=== PATIENT | female | born 1995 | race Caucasian/White ===

== ENCOUNTER 2018-05-30 02:45 | Inpatient (IN) | payer OTHER ==
[~2018-05-30] VITALS: Ht 154.9 cm; Wt 78.0 kg
[2018-05-30] MEDS ORDERED: RINGERS SOLUTION,LACTATED 1,000 ML IV PRN (03:05)
[2018-05-30] MEDS ORDERED: OXYTOCIN 30 UNITS/LACT RINGERS 500 ML IV ONE (03:05)
[2018-05-30] MEDS ORDERED: METOCLOPRAMIDE HCL 5 MG/ML 2 ML VIAL IVP PRN (03:15)
[2018-05-30] MEDS ORDERED: CITRIC ACID/SODIUM CITRATE 30 ML SOLUTION UDCUP PO PRN (03:15)
[2018-05-30] MEDS ORDERED: AMPICILLIN SODIUM 2 GM/NS 100 ML IV ONE (03:15)
[2018-05-30] MEDS ORDERED: FentaNYL CITRATE-PF 100 MCG/2 ML VIAL IVP PRN (03:15)
[2018-05-30 03:39] LABS: BASOPHILS % (AUTO) 0.5 % (0.0-2.0); EOSINOPHILS % (AUTO) 0.5 % (1.0-6.0); HEMATOCRIT 35.7 % (36-46); HEMOGLOBIN 12.5 g/dL (12.0-16.0); LYMPHOCYTES % (AUTO) 18.5 % (22.0-44.0); MEAN CORPUSCULAR HEMOGLOBIN 31.9 pg (26.0-34.0); MEAN CORPUSCULAR HGB CONC 35.1 G/dL (31.0-37.0); MEAN CORPUSCULAR VOLUME 91 fL (80-100); MONOCYTES # (AUTO) 1.2 K/uL (0.1-1.0); MONOCYTES % (AUTO) 10.9 % (2.0-9.0); NEUTROPHILS # (AUTO) 7.5 K/uL (1.8-7.7); NEUTROPHILS % (AUTO) 69.6 % (40.0-70.0); PLATELET COUNT (AUTO) 213 K/uL (150-450); RED BLOOD CELL COUNT(AUTO) 3.94 MIL/uL (4.00-5.20); RED CELL DISTRIBUTION WIDTH 14.6 % (11.5-14.5)
[2018-05-30] MEDS ORDERED: PREN1TAB80 PO (03:40)
[2018-05-30] MEDS: RINGERS SOLUTION,LACTATED 1,000 ML IV SCH ×3 (03:44→12:12)
[2018-05-30 03:45] LABS: APPEARANCE,URINE CLOUDY (CLEAR); BILIRUBIN,URINE NEGATIVE (NEGATIVE); GLUCOSE, URINE (UA) NEGATIVE (NEGATIVE); KETONES,URINE NEGATIVE (NEGATIVE); LEUKOCYTE ESTERASE ,URINE LARGE (NEGATIVE); NITRATE,URINE NEGATIVE (NEGATIVE); OCCULT BLOOD,URINE MODERATE (NEGATIVE); PROTEIN,URINE NEGATIVE (NEGATIVE)
[2018-05-30] MEDS ORDERED: ROPIVACAINE HCL/PF 0.2% 100 ML ED ONE (04:11)
[2018-05-30 04:19] LABS: BACTERIA,URINE Few /HPF (None Seen); SQUAMOUS EPITHELIAL CELL,UR Moderate /LPF (None Seen); WBC,URINE 51-100 /HPF (0-5)
[2018-05-30] MEDS ORDERED: ROPIVACAINE HCL/PF 0.2% 100 ML ED PRN (04:37)
[2018-05-30] MEDS ORDERED: ONDANSETRON HCL 4 MG/2 ML VIAL IVP PRN (04:45)
[2018-05-30] MEDS ORDERED: DiphenhydrAMINE HCL 50 MG/ML VIAL IVP PRN (04:45)
[2018-05-30 05:17] VITALS: BP 113/62
[2018-05-30] MEDS ORDERED: OXYTOCIN 30 UNITS/LACT RINGERS 500 ML IV PRN (06:28)
[2018-05-30] MEDS: AMPICILLIN SODIUM 1 GM/NS 50 ML IV SCH ×2 (07:54→12:12)
[2018-05-30] MEDS ORDERED: OXYGEN THERAPY IH SCH (08:00)
[2018-05-30] MEDS ORDERED: RINGERS SOLUTION,LACTATED 1,000 ML IV ONE (14:46)
[2018-05-30] MEDS ORDERED: OxyCODONE HCL/ACETAMINOPHEN 5-325 MG TABLET PO PRN ×2 (15:00)
[2018-05-30] MEDS ORDERED: BENZOCAINE 20%/MENTHOL 56 GM SPRAY CANISTER TP PRN (15:00)
[2018-05-30] MEDS ORDERED: LANOLIN 7 GM OINTMENT TP PRN (15:00)
[2018-05-30] MEDS ORDERED: GLYCERIN/WITCH HAZEL LEAF 40 PADS JAR TP PRN (15:00)
[2018-05-30] MEDS ORDERED: MEASLES/MUMPS/RUBELLA VACCINE, LIVE 0.5 ML/VIAL SQ ONE (15:00)
[2018-05-30 16:01] LABS: RAPID PLASMA REAGIN NONREACTIVE (NONREACTIVE); RUBELLA SCREEN (IGG) IMMUNE (IMMUNE)
[2018-05-30] MEDS: IBUPROFEN 600 MG TABLET PO PRN (18:13)
[2018-05-30] MEDS: MAGNESIUM HYDROXIDE SUSPENSION 30 ML UDCUP PO SCH (21:12)
[2018-05-31] MEDS: MAGNESIUM HYDROXIDE SUSPENSION 30 ML UDCUP PO SCH (09:35)
[2018-05-31] MEDS: IBUPROFEN 600 MG TABLET PO PRN ×2 (09:41→14:35)
[2018-05-31] MEDS ORDERED: ACET-66 PO (11:15)
[2018-05-31] MEDS ORDERED: IBUP-2070 PO (11:17)
[2018-05-31] MEDS ORDERED: DSS100 PO (11:18)
== END 2018-05-31 14:50 | disposition home or self-care (01) | DRG 807 ==
LOC: 4S 02:45 → PREOBSVTOIN 06-29 03:20
PROVIDERS: ADMIT Obstetrics & Gynecology; ATTEND Obstetrics & Gynecology
PROC: 10E0XZZ Delivery of Products of Conception, External Approach (ICD-10-PCS; principal; 2018-05-30)
PROC: 0KQM0ZZ Repair Perineum Muscle, Open Approach (ICD-10-PCS; 2018-05-30)
PROC: 3E0R3BZ Introduction of Anesthetic Agent into Spinal Canal, Percutaneous Approach (ICD-10-PCS; 2018-05-30)
PROC: 00HU33Z Insertion of Infusion Device into Spinal Canal, Percutaneous Approach (ICD-10-PCS; 2018-05-30)
DX: O70.1 Second degree perineal laceration during delivery (principal); Z37.0 Single live birth; Z3A.38 38 weeks gestation of pregnancy
CPT/HCPCS: 80307; 86592; 86762; 86850; 86900; 86901; 87086; 87340; J0290; J2590; J2795; J7120